=== PATIENT | female | born 1985 | race Caucasian/White ===

== ENCOUNTER 2020-05-15 09:00 | Outpatient (RCR) | payer OTHER, SELFPAY ==
--- NOTE | 2020-03-05 20:36 | P.CONTMS_ITS ---
History of Present Illness General Data Date of Service: 03/04/20 Reason for consult: TMS - second treatment course History of Present Illness 35 year old woman who has struggled with depression for over a decade. She has had periods of time in her life when her depression has been so severe that ths can not get out of bed, and she has been unable to work. She has had multiple medication trials but has not been able to tolerate side effects. She has also participated in therapy but has not achieved relief. Natalie had a full course of TMS from February to April 2019. She reports that it was the best thing I have ever done for myself . She stated that she felt well for the first time in her adult life and that her friends and family noticed a huge difference. The benefit was maintained for several months. She started to have difficulty about three or four months ago. Stressors include the pandemic which has been very difficult for her. She has a low mood, no energy, is sleeping more and she feels herself slipping into another episode of debilitating depression. During her last treatment her starting PHQ-9 was 17, final PHQ-9 7. She had no side effects and no negative consequences. The treatment was uneventful. ECT is not appropriate since she would not be able to support herself while having this treatment. Current medications None Therapist None Natalie feels strongly that she has not achieved relief with either of these. Past Psychiatric History/Medication Trials: Prozac Zoloft Lexapro Wellbutrin None of these were effective and they made her feel worse. She has no history of shamika, psychosis or SI. She has never been hospitalized. [facility] Narrative: No contraindications to TMS Family History: Multiple family members struggle with depression. Social History: Partnered. Works in a [place] [employer] Substance History: Denies Trauma History: Denies Meds/Allergies Allergies Allergies Allergy/AdvReac Type Severity Reaction Status Date / Time No Known Allergies Allergy Unverified 01/25/20 17:57 [No Known Allergies*] Mental Status Exam Mental Status Exam Patient Orientation: Person, Place, Time and Situation Level of Consciousness: Awake Patient Behavior: Cooperative Mood Description: Depressed, Anxious, Sad and Apprehensive Affect Description: Constricted Ability to Follow Directions: Good Speech Pattern: Clear and Spontaneous Speech Memory Description: Intact Hallucinations: None Delusions: Not Present Thought Process: Rumination, Goal Oriented and Slowed Thinking Thought Content: positive for Circumstantial, positive for Goal Oriented, positive for Preoccupation, negative for Suicidal Ideation and negative for Homicidal Ideation Depressive Symptoms: Difficulty Sleeping, Sleeping More Than Usual, Loss of Int. in Activity, Feelings of Worthlessness, Hopelessness, Isolating-Friends/Family, Feelings of Guilt, Unhappiness, Thoughts of /Suicide, Loss of Energy and Difficulty Concentrating Judgement: Good Assessment & Plan Assessment & Plan (1) Major depressive disorder, recurrent severe without psychotic features: Status: Acute Code(s): F33.2 - Major depressive disorder, recurrent severe without psychotic features Recommendations: Natalie has not responded to multiple medication trials, therapy and had a robust response to TMS. She has a recurrence of symptoms and another course of TMS is indicated. She will be referred to Selene Nguyen to coordinate her care. Greater than 50% of the session was spent on counseling and/or coordination of care
--- NOTE | 2020-03-21 11:26 | P.PNPS_ITS ---
TMS Daily Progress Note Daily TMS Progress Note Week #: 1 Treatment #(06-08): 1 PHQ-9 Pre-Treatment (06-05): 17 PHQ-9 Most Recent (06-05): 17 JAN-7 Pre-Treatment (0-21): 9 JAN-7 Most Recent (0-21): 9 CGI-I Most Recent: 0 = Not Assessed Reviewed: TMS Tech Note Reviewed (Uncomplicated mapping. Some changes to settings. Tolerated first treatment) Verification: I have reviewed the TMS Special Needs Caregiver Note and agree with the contents. The patient remains a candidate to continue TMS treatment per protocol.
--- NOTE | 2020-03-25 19:25 | HO.TMSDAILY2 ---
TMS Daily Progress Note Daily TMS Progress Note Week #: 1 Treatment #(06-08): 3 PHQ-9 Pre-Treatment (06-05): 17 PHQ-9 Most Recent (06-05): 17 JAN-7 Pre-Treatment (0-21): 9 JAN-7 Most Recent (0-21): 8 CGI-I Most Recent: 0 = Not Assessed Reviewed: TMS Tech Note Reviewed Verification: I have reviewed the TMS Physical Therapy Director Note and agree with the contents. The patient remains a candidate to continue TMS treatment per protocol.
--- NOTE | 2020-03-26 23:58 | P.PNPS_ITS ---
TMS Daily Progress Note Daily TMS Progress Note Week #: 1 Treatment #(06-08): 4 PHQ-9 Pre-Treatment (06-05): 17 PHQ-9 Most Recent (06-05): 17 JAN-7 Pre-Treatment (0-21): 9 JAN-7 Most Recent (0-21): 8 CGI-I Most Recent: 0 = Not Assessed Reviewed: TMS Tech Note Reviewed Verification: I have reviewed the TMS Swimming Pool Servicer Note and agree with the contents. The patient remains a candidate to continue TMS treatment per protocol.
--- NOTE | 2020-03-27 16:08 | P.PNPS_ITS ---
TMS Daily Progress Note Daily TMS Progress Note Week #: 1 Treatment #(06-08): 5 PHQ-9 Pre-Treatment (06-05): 17 PHQ-9 Most Recent (06-05): 17 JAN-7 Pre-Treatment (0-21): 9 JAN-7 Most Recent (0-21): 8 CGI-I Most Recent: 0 = Not Assessed Q-LES-Q-SF Most Recent: 57 Reviewed: TMS Tech Note Reviewed Verification: I have reviewed the TMS Supplemental Manager Note and agree with the contents. The patient remains a candidate to continue TMS treatment per protocol.
--- NOTE | 2020-03-28 04:19 | HO.TMSDAILY2 ---
TMS Daily Progress Note Daily TMS Progress Note Week #: 2 Treatment #(06-08): 6 PHQ-9 Pre-Treatment (06-05): 17 PHQ-9 Most Recent (06-05): 17 JAN-7 Pre-Treatment (0-21): 9 JAN-7 Most Recent (0-21): 8 CGI-I Most Recent: 0 = Not Assessed Q-LES-Q-SF Most Recent: 57 Reviewed: TMS Tech Note Reviewed Verification: I have reviewed the TMS Blood Splatter Analyst Note and agree with the contents. The patient remains a candidate to continue TMS treatment per protocol.
--- NOTE | 2020-03-29 13:54 | HO.TMSDAILY2 ---
TMS Daily Progress Note Daily TMS Progress Note Week #: 2 Treatment #(06-08): 7 PHQ-9 Pre-Treatment (06-05): 17 PHQ-9 Most Recent (06-05): 17 JAN-7 Pre-Treatment (0-21): 9 JAN-7 Most Recent (0-21): 8 CGI-I Most Recent: 0 = Not Assessed Q-LES-Q-SF Most Recent: 57 Reviewed: TMS Tech Note Reviewed Verification: I have reviewed the TMS Grade And Center Marker Note and agree with the contents. The patient remains a candidate to continue TMS treatment per protocol.
--- NOTE | 2020-04-02 23:12 | HO.TMSDAILY2 ---
TMS Daily Progress Note Daily TMS Progress Note Date of Service: 04/02/20 Week #: 1 Treatment #(06-08): 9 PHQ-9 Pre-Treatment (-): 17 PHQ-9 Most Recent (06-05): 9 JAN-7 Pre-Treatment (0-21): 9 JAN-7 Most Recent (0-21): 8 CGI-I Most Recent: 0 = Not Assessed Q-LES-Q-SF Most Recent: 57 Reviewed: TMS Tech Note Reviewed Verification: I have reviewed the TMS High School Social Science Teacher Note and agree with the contents. The patient remains a candidate to continue TMS treatment per protocol.
--- NOTE | 2020-04-03 05:44 | P.PNPS_ITS ---
TMS Daily Progress Note Daily TMS Progress Note Date of Service: 04/04/20 Week #: 2 Treatment #(-): 10 PHQ-9 Pre-Treatment (-): 17 PHQ-9 Most Recent (06-05): 13 JAN-7 Pre-Treatment (0-21): 9 JAN-7 Most Recent (0-21): 8 CGI-I Most Recent: 0 = Not Assessed Q-LES-Q-SF Most Recent: 57 Reviewed: TMS Tech Note Reviewed Verification: I have reviewed the TMS Chief Administrative Officer Note and agree with the contents. The patient remains a candidate to continue TMS treatment per protocol.
--- NOTE | 2020-04-08 17:36 | HO.TMSDAILY2 ---
TMS Daily Progress Note Daily TMS Progress Note Date of Service: 04/08/20 Week #: 3 Treatment #(06-08): 11 PHQ-9 Pre-Treatment (-): 17 PHQ-9 Most Recent (06-05): 13 JAN-7 Pre-Treatment (0-21): 9 JAN-7 Most Recent (0-21): 7 CGI-I Most Recent: 0 = Not Assessed Q-LES-Q-SF Most Recent: 57 Reviewed: TMS Tech Note Reviewed Verification: I have reviewed the TMS Drug Abuse Worker Note and agree with the contents. The patient remains a candidate to continue TMS treatment per protocol.
--- NOTE | 2020-04-09 23:16 | P.PNPS_ITS ---
TMS Daily Progress Note Daily TMS Progress Note Date of Service: 04/09/20 Week #: 3 Treatment #(-): 12 PHQ-9 Pre-Treatment (-): 17 PHQ-9 Most Recent (06-05): 9 JAN-7 Pre-Treatment (0-21): 9 JAN-7 Most Recent (0-21): 7 CGI-I Most Recent: 0 = Not Assessed Q-LES-Q-SF Most Recent: 57 Reviewed: TMS Tech Note Reviewed Verification: I have reviewed the TMS Windows Systems Architect Note and agree with the contents. The patient remains a candidate to continue TMS treatment per protocol.
--- NOTE | 2020-04-10 08:11 | P.PNPS_ITS ---
TMS Daily Progress Note Daily TMS Progress Note Date of Service: 04/10/20 Week #: 3 Treatment #(-30): 13 PHQ-9 Pre-Treatment (-): 17 PHQ-9 Most Recent (06-05): 13 JAN-7 Pre-Treatment (0-21): 9 JAN-7 Most Recent (0-21): 7 CGI-I Most Recent: 0 = Not Assessed Q-LES-Q-SF Most Recent: 57 Reviewed: TMS Tech Note Reviewed Verification: I have reviewed the TMS Contact Lens Molder Note and agree with the contents. The patient remains a candidate to continue TMS treatment per protocol.
--- NOTE | 2020-04-11 16:44 | HO.TMSDAILY2 ---
TMS Daily Progress Note Daily TMS Progress Note Date of Service: 04/11/20 Week #: 3 Treatment #(-): 14 PHQ-9 Pre-Treatment (-): 17 PHQ-9 Most Recent (06-05): 13 JAN-7 Pre-Treatment (0-21): 9 JAN-7 Most Recent (0-21): 7 CGI-I Most Recent: 0 = Not Assessed Q-LES-Q-SF Most Recent: 57 Reviewed: TMS Tech Note Reviewed Verification: I have reviewed the TMS Curatorial Assistant Note and agree with the contents. The patient remains a candidate to continue TMS treatment per protocol.
--- NOTE | 2020-04-12 12:52 | P.PNPS_ITS ---
TMS Daily Progress Note Daily TMS Progress Note Date of Service: 04/12/20 Week #: 3 Treatment #(-30): 15 PHQ-9 Pre-Treatment (-): 17 PHQ-9 Most Recent (06-05): 13 JAN-7 Pre-Treatment (0-21): 9 JAN-7 Most Recent (0-21): 7 CGI-I Most Recent: 0 = Not Assessed Q-LES-Q-SF Most Recent: 57 Reviewed: TMS Tech Note Reviewed Verification: I have reviewed the TMS Infectious Waste Technician Note and agree with the contents. The patient remains a candidate to continue TMS treatment per protocol.
--- NOTE | 2020-04-15 18:55 | P.PNPS_ITS ---
TMS Daily Progress Note Daily TMS Progress Note Date of Service: 04/15/20 Week #: 4 Treatment #(-30): 16 PHQ-9 Pre-Treatment (1-): 17 PHQ-9 Most Recent (06-05): 15 JAN-7 Pre-Treatment (0-21): 9 JAN-7 Most Recent (0-21): 5 CGI-I Most Recent: 0 = Not Assessed Q-LES-Q-SF Most Recent: 57 Reviewed: TMS Tech Note Reviewed Verification: I have reviewed the TMS Pump Erector Note and agree with the contents. The patient remains a candidate to continue TMS treatment per protocol.
--- NOTE | 2020-04-16 20:37 | P.PNPS_ITS ---
TMS Daily Progress Note Daily TMS Progress Note Date of Service: 04/16/20 Week #: 4 Treatment #(-30): 17 PHQ-9 Pre-Treatment (1-): 17 PHQ-9 Most Recent (06-05): 15 JAN-7 Pre-Treatment (0-21): 9 JAN-7 Most Recent (0-21): 5 CGI-I Most Recent: 0 = Not Assessed Q-LES-Q-SF Most Recent: 57 Reviewed: TMS Tech Note Reviewed Verification: I have reviewed the TMS Learning And Development Director Note and agree with the contents. The patient remains a candidate to continue TMS treatment per protocol.
--- NOTE | 2020-04-17 20:51 | HO.TMSDAILY2 ---
TMS Daily Progress Note Daily TMS Progress Note Date of Service: 04/17/20 Week #: 4 Treatment #(-30): 18 PHQ-9 Pre-Treatment (1-): 17 PHQ-9 Most Recent (06-05): 15 JAN-7 Pre-Treatment (0-21): 9 JAN-7 Most Recent (0-21): 5 CGI-I Most Recent: 0 = Not Assessed Q-LES-Q-SF Most Recent: 57 Reviewed: TMS Tech Note Reviewed Verification: I have reviewed the TMS Construction And Maintenance Inspector Note and agree with the contents. The patient remains a candidate to continue TMS treatment per protocol.
--- NOTE | 2020-04-19 10:31 | HO.TMSDAILY2 ---
TMS Daily Progress Note Daily TMS Progress Note Date of Service: 04/18/20 Week #: 4 Treatment #(-30): 19 PHQ-9 Pre-Treatment (1-): 17 PHQ-9 Most Recent (06-05): 15 JAN-7 Pre-Treatment (0-21): 9 JAN-7 Most Recent (0-21): 5 CGI-I Most Recent: 0 = Not Assessed Q-LES-Q-SF Most Recent: 57 Reviewed: TMS Tech Note Reviewed (Late entry for 04/18/20) Verification: I have reviewed the TMS Aeronautical Research Engineer Note and agree with the contents. The patient remains a candidate to continue TMS treatment per protocol.
--- NOTE | 2020-04-19 15:51 | HO.TMSDAILY2 ---
TMS Daily Progress Note Daily TMS Progress Note Date of Service: 04/19/20 Week #: 4 Treatment #(-30): 20 PHQ-9 Pre-Treatment (1-): 17 PHQ-9 Most Recent (-): 15 JAN-7 Pre-Treatment (0-21): 9 JAN-7 Most Recent (0-21): 5 CGI-I Most Recent: 0 = Not Assessed Q-LES-Q-SF Most Recent: 59 Reviewed: TMS Tech Note Reviewed Verification: I have reviewed the TMS Certified Master Safecracker Note and agree with the contents. The patient remains a candidate to continue TMS treatment per protocol.
--- NOTE | 2020-04-22 14:51 | P.PNPS_ITS ---
TMS Daily Progress Note Daily TMS Progress Note Date of Service: 04/22/20 Week #: 5 Treatment #(-30): 21 PHQ-9 Pre-Treatment (1-): 17 PHQ-9 Most Recent (06-05): 14 JAN-7 Pre-Treatment (0-21): 9 JAN-7 Most Recent (0-21): 8 CGI-I Most Recent: 0 = Not Assessed Q-LES-Q-SF Most Recent: 59 Reviewed: TMS Tech Note Reviewed Verification: I have reviewed the TMS Test Desk Supervisor Note and agree with the contents. The patient remains a candidate to continue TMS treatment per protocol.
--- NOTE | 2020-04-23 11:13 | HO.TMSDAILY2 ---
TMS Daily Progress Note Daily TMS Progress Note Date of Service: 04/23/20 Week #: 5 Treatment #(-30): 25 PHQ-9 Pre-Treatment (1-): 17 PHQ-9 Most Recent (-): 14 JAN-7 Pre-Treatment (0-21): 9 JAN-7 Most Recent (0-21): 8 CGI-I Most Recent: 0 = Not Assessed Q-LES-Q-SF Most Recent: 59 Reviewed: TMS Tech Note Reviewed Verification: I have reviewed the TMS Industrial Relations Commissioner Note and agree with the contents. The patient remains a candidate to continue TMS treatment per protocol.
--- NOTE | 2020-04-24 15:36 | HO.TMSDAILY2 ---
TMS Daily Progress Note Daily TMS Progress Note Date of Service: 04/24/20 Week #: 5 Treatment #(-30): 23 PHQ-9 Pre-Treatment (1-): 17 PHQ-9 Most Recent (-): 14 JAN-7 Pre-Treatment (0-21): 9 JAN-7 Most Recent (0-21): 8 CGI-I Most Recent: 0 = Not Assessed Q-LES-Q-SF Most Recent: 59 Reviewed: TMS Tech Note Reviewed Verification: I have reviewed the TMS Oracle Solutions Architect Note and agree with the contents. The patient remains a candidate to continue TMS treatment per protocol.
--- NOTE | 2020-04-25 13:43 | P.PNPS_ITS ---
TMS Daily Progress Note Daily TMS Progress Note Date of Service: 04/25/20 Week #: 5 Treatment #(-30): 24 PHQ-9 Pre-Treatment (1-): 17 PHQ-9 Most Recent (06-05): 14 JAN-7 Pre-Treatment (0-21): 9 JAN-7 Most Recent (0-21): 8 CGI-I Most Recent: 0 = Not Assessed Q-LES-Q-SF Most Recent: 59 Reviewed: TMS Tech Note Reviewed Verification: I have reviewed the TMS Community Association Manager Note and agree with the contents. The patient remains a candidate to continue TMS treatment per protocol.
--- NOTE | 2020-04-26 17:29 | P.PNPS_ITS ---
TMS Daily Progress Note Daily TMS Progress Note Date of Service: 04/26/20 Week #: 5 Treatment #(-30): 25 PHQ-9 Pre-Treatment (1-): 17 PHQ-9 Most Recent (-): 14 JAN-7 Pre-Treatment (0-21): 9 JAN-7 Most Recent (0-21): 8 CGI-I Most Recent: 0 = Not Assessed Q-LES-Q-SF Most Recent: 59 Reviewed: TMS Tech Note Reviewed Verification: I have reviewed the TMS House Coordinator Note and agree with the contents. The patient remains a candidate to continue TMS treatment per protocol.
--- NOTE | 2020-04-29 17:49 | HO.TMSDAILY2 ---
TMS Daily Progress Note Daily TMS Progress Note Date of Service: 04/30/20 Week #: 6 Treatment #(-30): 26 PHQ-9 Pre-Treatment (1-): 17 PHQ-9 Most Recent (06-05): 14 JAN-7 Pre-Treatment (0-21): 9 JAN-7 Most Recent (0-21): 8 CGI-I Most Recent: 0 = Not Assessed Q-LES-Q-SF Most Recent: 59 Reviewed: TMS Tech Note Reviewed Verification: I have reviewed the TMS Percussion Instrument Tuner Note and agree with the contents. The patient remains a candidate to continue TMS treatment per protocol.
--- NOTE | 2020-04-30 22:50 | P.PNPS_ITS ---
TMS Daily Progress Note Daily TMS Progress Note Date of Service: 04/30/20 Week #: 6 Treatment #(-30): 27 PHQ-9 Pre-Treatment (1-): 17 PHQ-9 Most Recent (06-05): 14 JAN-7 Pre-Treatment (0-21): 9 JAN-7 Most Recent (0-21): 8 CGI-I Most Recent: 0 = Not Assessed Q-LES-Q-SF Most Recent: 59 Reviewed: TMS Tech Note Reviewed Verification: I have reviewed the TMS Configuration Manager Note and agree with the contents. The patient remains a candidate to continue TMS treatment per protocol.
--- NOTE | 2020-05-02 17:02 | HO.TMSDAILY2 ---
TMS Daily Progress Note Daily TMS Progress Note Date of Service: 05/02/20 Week #: 6 Treatment #(-30): 29 PHQ-9 Pre-Treatment (1-): 17 PHQ-9 Most Recent (06-05): 14 JAN-7 Pre-Treatment (0-21): 9 JAN-7 Most Recent (0-21): 8 CGI-I Most Recent: 0 = Not Assessed Q-LES-Q-SF Most Recent: 59 Reviewed: TMS Tech Note Reviewed Verification: I have reviewed the TMS Oil Field Technician Note and agree with the contents. The patient remains a candidate to continue TMS treatment per protocol.
--- NOTE | 2020-05-06 23:51 | HO.TMSDAILY2 ---
TMS Daily Progress Note Daily TMS Progress Note Date of Service: 05/07/20 Week #: 6 Treatment #(-): 30 PHQ-9 Pre-Treatment (-): 17 PHQ-9 Most Recent (06-05): 14 JAN-7 Pre-Treatment (0-21): 9 JAN-7 Most Recent (0-21): 8 CGI-I Most Recent: 0 = Not Assessed Q-LES-Q-SF Most Recent: 59 Reviewed: TMS Tech Note Reviewed Verification: I have reviewed the TMS Support Merchandiser Note and agree with the contents. The patient remains a candidate to continue TMS treatment per protocol.
--- NOTE | 2020-05-07 23:06 | P.PNPS_ITS ---
TMS Daily Progress Note Daily TMS Progress Note Date of Service: 05/07/20 Week #: 7 Treatment #(-): 31 PHQ-9 Pre-Treatment (-): 17 PHQ-9 Most Recent (06-05): 14 JAN-7 Pre-Treatment (0-21): 9 JAN-7 Most Recent (0-21): 8 CGI-I Most Recent: 0 = Not Assessed Q-LES-Q-SF Most Recent: 59 Reviewed: TMS Tech Note Reviewed Verification: I have reviewed the TMS Health/Safety Job Titles Note and agree with the contents. The patient remains a candidate to continue TMS treatment per protocol.
--- NOTE | 2020-05-08 23:08 | P.PNPS_ITS ---
TMS Daily Progress Note Daily TMS Progress Note Date of Service: 05/08/20 Week #: 7 Treatment #(-): 32 PHQ-9 Pre-Treatment (-): 17 PHQ-9 Most Recent (06-05): 14 JAN-7 Pre-Treatment (0-21): 9 JAN-7 Most Recent (0-21): 8 CGI-I Most Recent: 0 = Not Assessed Q-LES-Q-SF Most Recent: 59 Reviewed: TMS Tech Note Reviewed Verification: I have reviewed the TMS Windshield Technician Note and agree with the contents. The patient remains a candidate to continue TMS treatment per protocol.
--- NOTE | 2020-05-09 23:48 | HO.TMSDAILY2 ---
TMS Daily Progress Note Daily TMS Progress Note Date of Service: 05/13/20 Week #: 7 Treatment #(06-08): 33 PHQ-9 Pre-Treatment (-): 17 PHQ-9 Most Recent (06-05): 14 JAN-7 Pre-Treatment (0-): 9 JAN-7 Most Recent (0-): 8 CGI-I Most Recent: 0 = Not Assessed Q-LES-Q-SF Most Recent: 59 Reviewed: TMS Tech Note Reviewed Verification: I have reviewed the TMS Product Safety Technical Assistant Note and agree with the contents. The patient remains a candidate to continue TMS treatment per protocol.
--- NOTE | 2020-05-13 23:48 | HO.TMSDAILY2 ---
TMS Daily Progress Note Daily TMS Progress Note Date of Service: 05/13/20 Week #: 7 Treatment #(06-08): 34 PHQ-9 Pre-Treatment (-): 17 PHQ-9 Most Recent (06-05): 14 JAN-7 Pre-Treatment (0-): 9 JAN-7 Most Recent (0-): 8 CGI-I Most Recent: 0 = Not Assessed Q-LES-Q-SF Most Recent: 59 Reviewed: TMS Tech Note Reviewed Verification: I have reviewed the TMS Yarn Polishing Machine Operator Note and agree with the contents. The patient remains a candidate to continue TMS treatment per protocol.
--- NOTE | 2020-05-14 22:58 | HO.TMSDAILY2 ---
TMS Daily Progress Note Daily TMS Progress Note Date of Service: 05/14/20 Week #: 7 Treatment #(06-08): 35 PHQ-9 Pre-Treatment (-): 17 PHQ-9 Most Recent (06-05): 14 JAN-7 Pre-Treatment (0-): 9 JAN-7 Most Recent (0-): 8 CGI-I Most Recent: 0 = Not Assessed Q-LES-Q-SF Most Recent: 59 Reviewed: TMS Tech Note Reviewed Verification: I have reviewed the TMS Tab Card Press Operator Note and agree with the contents. The patient remains a candidate to continue TMS treatment per protocol.
--- NOTE | 2020-05-15 23:23 | HO.TMSDAILY2 ---
TMS Daily Progress Note Daily TMS Progress Note Date of Service: 05/19/20 Week #: 8 Treatment #(-): 36 PHQ-9 Pre-Treatment (-): 17 PHQ-9 Most Recent (06-05): 14 JAN-7 Pre-Treatment (0-): 9 JAN-7 Most Recent (0-): 8 CGI-I Most Recent: 0 = Not Assessed Q-LES-Q-SF Most Recent: 59 Reviewed: TMS Tech Note Reviewed Verification: I have reviewed the TMS Home Service Technician Note and agree with the contents. The patient remains a candidate to continue TMS treatment per protocol.
== END 2020-05-15 10:01 | disposition home or self-care (01) ==
LOC: HO.PTMS 09:00
PROVIDERS: Visit Provider Psychiatry & Neurology Psychiatry
DX: F33.2 Major depressive disorder, recurrent severe without psychotic features (principal)
CPT/HCPCS: 90867; 90868

== ENCOUNTER 2025-02-20 08:58 | Emergency (ER) | payer OTHER, SELFPAY ==
--- OUTSIDE RECORDS SUMMARY | 2024-05-18 14:10 | XMS_ITS | Encounter Summary ---
Author Organization [facility] Address [address] [place] [address] [place] [address] Phone Care Team Providers Care Historic Site Administrator Name Role Phone Reddy De La Fuente CNP Primary Care Provider Sienna Gee MD Unavailable [phone] Encounter Details Date Type Department Care Team (Late st Contact Info) Description 05/18/2024 1:10 PM EST Hospital Encounter [facility] [address] [place] [address] Marita Cuevas FNP [address] [place] [id number] [email or web address] Social History Tobacco Use Types Packs/Day Years Used Date Smoking Tobacco: Never Smokeless Tobacco: Never Alcohol Use Standard Drinks/Week Comments Yes 0 (1 standard drink = 0.6 oz pur e alcohol) 1-4 drinks daily Child or Family Care Answer Date Record ed Do you have problems with on e of the following making it difficult for you to work, study, or receive health care? No 06/19/2024 Education Answer Date Recorded Are you interested in help w ith more adult education (for example, completing high school, GED, job training, learning the Syrian language, technical skills, or developing parenting skills)? No 06/19/2024 Are you concerned about learning? Not on file 06/19/2024 No 06/19/2024 Yes 06/19/2024 Food Answer Date Recorded Within the past 6 months we worried whether our food would run out before we got money to buy more. Sometimes True 025 Within the past 6 months the food we bought just didn't last and we didn't have enough money to get more. Never True 06/10 Residential Stability Answer Date Recor ded What is your housing situation today? I have sofie evans 06/19/2024 How many times have you move d in the past 12 months? Zero (I did not move) 06/19/2024 Paying for Meds Answer Date Recorded Do you have trouble paying for medicines? I delvis se not to answer 06/19/2024 Paying Utility Bills Answer Date Record ed Do you have trouble paying y our heating or electricity bill? I choose not to answer 06/19/2024 Transportation Answer Date Recorded Has the lack of transportati on kept you from medical appointments or from getting medications? No 06/19/2024 Unemployment Answer Date Recorded Are you currently unemployed or working on a part-time or temporary basis, and looking for work? No 06/19/2024 Digital Access Answer Date Recorded No 06/19/2024 Yes 06/19/2024 Do you have reliable internet access at home? Ye s 06/19/2024 Do you have a device (e.g., phone, tablet, computer) with a working camera? Yes 06/19/2024 Intimate Partner Violence Answer Date R ecorded Denied Basic Needs Not on file 06/19/2024 In the past 12 months have y ou been in a relationship with a person who hurts, threatens, or tries to control you? No 06/19/2024 Worried food would run out Not on file 06/19 In the past 12 months have y ou been in a relationship with a person who hurts, threatens, or tries to control you? 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 on file Not on file Not on file documented as of this encounter Plan of Treatment Upcoming Encounters Date Type Department Care Team (Late st Contact Info) Description 06/26/2025 10:00 AM EST Office Visit [facility] [address] [place] [address] Reddy De La Fuente, BIN PILER [address], [address] [place] [address] documented as of this encounter Procedures Procedure Name Priority Date/Time Associated Diagnosis Comments XR FINGER 2 OR MORE VIEWS (RIGHT) Urgent/patient waiting 05/18/2024 1:18 PM EST Fall, initial encounter documented in this encounter Results * XR FINGER 2 OR MORE VIEWS (RIGHT) (05/18/2024 1:18 PM EST) Anatomical Region Laterality Modality Hand Right Computed Radiogr aphy 05/18/2024 2:02 PM EST Impressions 05/18/2024 2:03 PM EST No fracture or dislocation. Narrative 05/18/2024 2:03 PM EST XR FINGER 2 OR MORE VIEWS (RIGHT) Referring clinician's provided indication for this examination in [facility]: S/P Fall; fell ice skating with hands behind her COMPARISON: None FINDINGS: No fracture. Normal alignment. Normal joint spaces. Procedure Note Yenny Eden MD, CEDRICK - 05/18/2024 XR FINGER 2 OR MORE VIEWS (RIGHT) Referring clinician's provided indication for this examination in [facility]:S/P Fall; fell ice skating with hands behind her COMPARISON: None FINDINGS: No fracture. Normal alignment. Normal joint spaces. IMPRESSION: No fracture or dislocation. us Marita Cuevas COMMUNICATIONS INTERN IMG XR UPPER EXTREMITY Caterina l Result documented in this encounter Visit Diagnoses Not on filedocumented in this encounter Additional Health Concerns Assessment Noted Time PHQ-9 Depression Total Score: 11 03/03/ 021 5:29 PM EDT PHQ-2 Depression Total Score: 2 03/09/20 22 10:42 AM EDT documented as of this encounter Care Teams Historic Site Administrator Relationship Specialty Start Date End Date Reddy De La Fuente CNP [address] [place] [address], [address] [place] [address] [email or web address] PCP - General Family Medicine 12/01/17 Sienna Gee MD [address] [place] [address], [address] [place] [address] [email or web address] Insurance Assigned Provider Family Medicine 12/01/17 documented as of this encounter Additional Source Comments The information contained in this document represents components of the legal health record. It is not the complete legal health record.[facility]
--- OUTSIDE RECORDS SUMMARY | 2024-06-28 10:00 | XMS_ITS | Encounter Summary ---
Author Organization [facility] Address [address] [facility] [address] [place] [address] Phone Care Team Providers Care Electricity Trader Name Role Phone Reddy De La Fuente CNP Primary Care Provider Sienna Gee MD Unavailable [phone] Encounter Details Date Type Department Care Team (Late st Contact Info) Description 06/28/2024 9:00 AM EST Hospital Encounter [facility] [address] [place] [address] Jessica Mcfadden, SIDNEY [address] [place] [address] [email or web address] Social History Tobacco Use Types Packs/Day Years [...] high school, GED, job training, learning the Trinidadian language, technical skills, or developing parenting skills)? 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 Not on file Not on file documented as of this encounter Plan of Treatment Upcoming Encounters Date Type Department Care Team (Late st Contact Info) Description 06/26/2025 10:00 AM EST Office Visit [facility] [address] [place] [address] Reddy De La Fuente, MEAT PASSER [address] [facility], [address] [place] [address] [email or web address] documented as of this encounter Procedures Procedure Name Priority Date/Time Associated Diagnosis Comments XR HAND 3 OR MORE VIEWS (LEFT) Urgent/patient waiting 06/28/2024 9:05 AM EST Dog bite, subsequent encounter documented in this encounter Results * XR HAND 3 OR MORE VIEWS (LEFT) (06/28/2024 9:05 AM EST) Anatomical Region Laterality Modality Hand Left Computed Radiogr aphy 06/28/2024 10:1 7 AM EST Impressions 06/28/2024 10:19 AM EST FINDINGS/IMPRESSION: No fracture. Normal alignment. Normal joint spaces. No bony erosions. Soft tissue swelling overlying the second PIP joint. No soft tissue gas. No radiopaque foreign body. Narrative 06/28/2024 10:19 AM EST XR HAND 3 OR MORE VIEWS (LEFT) Referring clinician's provided indication for this examination in [facility]: Infection COMPARISON: None. Procedure Note Claude Severino MD - 06/28/2024 XR HAND 3 OR MORE VIEWS (LEFT) Referring clinician's provided indication for this examination in [facility]:Infection COMPARISON: None. IMPRESSION: FINDINGS/IMPRESSION: No fracture. Normal alignment. Normal joint spaces. No bony erosions. Softtissue swelling overlying the second PIP joint. No soft tissue gas. Noradiopaque foreign body. us Jessica Mcfadden CREATIVE ART THERAPIST IMG XR UPPER EXTREMITY Fin al Result documented in this encounter Visit Diagnoses Not on filedocumented in this encounter Additional Health Concerns Assessment Noted Time PHQ-9 Depression Total Score: 11 021 5:29 PM EDT PHQ-2 Depression Total Score: 2 06/19/19 25 4:03 PM EST documented as of this encounter Care Teams Electricity Trader Relationship Specialty Start Date End Date De La Fuente Reddypatrick Pruitt CNP [address] [place] [address], [address] [place] [address] PCP - General Family Medicine 12/01/17 Sienna Gee MD [address] [place] [address], [address] [place] [address] [email or web address] Insurance Assigned Provider Family Medicine 12/01/17 documented as of this encounter Additional Source Comments The information contained in this document represents components of the legal health record. It is not the complete legal health record.[facility]
--- NOTE | ~2025-02-20 | CT_ITS ---
EXAMINATION: CT HEAD AND FACIAL BONES WITHOUT CONTRAST CLINICAL INFORMATION: Left-sided facial pain after fall. COMPARISON: None TECHNIQUE: Contiguous axial imaging was performed from the skull base to vertex, as well as the maxillofacial bones/mandible without intravenous administration of contrast. Multiplanar reformatted imaging was constructed from the axial data set. This CT examination was performed using dose optimization techniques as appropriate, variously including the following: *Automated exposure control *Adjustment of mA and/or kV according to patient size (this includes techniques or standardized protocols for targeted exams where dose is matched to indication/reason for exam; i.e. extremities or head) *Use of iterative reconstruction technique CT HEAD: There is no evidence of intracranial hemorrhage or extra-axial fluid collection. There is no mass effect, or edema. No CT evidence of acute territorial infarct. Ventricles, sulci, and cisterns are normal in size and configuration for patient age. No hydrocephalus. No midline shift. Negative hyperdense MCA sign. Negative insular ribbon sign. No significant white matter abnormalities. Normal pituitary. Globes and orbital contents image normally. The calvarium and skull base are intact without fracture. CT MAXILLOFACIAL BONES: The mandible is intact without fracture. The TM joints are normally oriented. The nasal bones, nasal process, maxilla, orbits, zygomatic arches, pterygoid plates, and sphenoid bone are intact without fracture. No significant nasal septal deviation. Paranasal sinuses are normally pneumatized throughout. No paranasal sinus fractures. The mastoids and tympanic cavities are normally aerated. Soft tissues demonstrate mild soft tissue swelling overlying the left orbit and left frontal scalp region. CT/CT facial bones wo IV con IMPRESSION: 1. No acute intracranial abnormalities. No calvarial or skull base fracture. 2. No maxillofacial bone fracture identified. 3. Mild soft tissue swelling involving the left frontal scalp and left preseptal orbit. Electronically signed by: Lamine Cast MD 02/20/2025 11:14 AM EDT
[2025-02-20 09:07] VITALS: BP 156/89; PULSE 100; RESP 18; TEMP 36.6; O2SAT 100; BMI 25.5
--- NOTE | 2025-02-20 09:52 | ED.HEATRA ---
HPI - Head Injury General Chief complaint: Head Injury Stated complaint: Head injury Time Seen by Provider: 02/20/25 09:22 Source: patient and RN notes reviewed Mode of arrival: ambulatory Limitations: no limitations History of Present Illness ED Provider: Jessica Barajas PA-C HPI Narrative: This is a 40-year-old female who presents emergency department with concerns of head strike which occurred 2 days ago. Patient states that she accidentally tripped over a dog bone, and struck the left side of her forehead on a window sill. No LOC. She states that since this injury she has had ongoing headaches, fatigue, and nausea. She states that she did have 1 episode of vomiting after the incident however states that this has since resolved. She is not on anticoagulation. No other complaints or concerns at this time. MD Complaint: head injury Associated symptoms: denies other symptoms Related Data Allergies Allergy/AdvReac Type Severity Reaction Status Date / Time shellfish derived (shellfish) Allergy Itching Verified 02/20/25 09:11 Review of Systems Review of Systems: Constitutional : No Fever, No Chills ENT/Mouth : No sore throat, No Rhinorrhea Eyes: No Eye Pain, No Swelling, No Redness Cardiovascular : No Chest Pain, No SOB Respiratory : No Cough, No Sputum Gastrointestinal : +Nausea, + Vomiting (resolved), No Diarrhea, No abdominal Pain Genitourinary : No Dysuria, No Hematuria Musculoskeletal : No joint pain, No Myalgias, No Joint Swelling Skin : No Skin Lesions Neuro : No Weakness, No Numbness, +Headache All other systems reviewed and are negative Yes all other systems are reviewed and are negative Constitutional: Constitutional: Reports as per [facility] Social History Social History Advance Directives: No Advance Directives Information Provided: No Do you have a plan to hurt others: No Plan Physical Exam Vital Signs: Vital Signs: Last Vital Signs Temp 98 F 02/20/25 09:07 Pulse 100 02/20/25 09:07 Resp 18 02/20/25 09:07 BP 156/89 H 02/20/25 09:07 Pulse Ox 100 02/20/25 09:07 O2 Del Method Room Air 02/20/25 09:07 BMI result Body Mass Index 25.5 Const: General: cooperative, comfortable and no acute distress Orientation/consciousness: patient oriented x3 Limitations: no limitations HEENT: Head: Yes normal to inspection, Yes normocephalic and Yes atraumatic Ears: hearing grossly normal bilaterally General nose exam: Normal external nose present Face and sinus: Yes normal facial exam Mouth: Normal oral and palatal mucosa present, oropharynx normal and moist mucous membranes Throat: Yes posterior oropharynx normal Eyes: Other: Left infra orbital ecchymosis seen, no tenderness palpation along the orbital bones. General: appearance normal, both eyes and all related structures Eyelids: Yes eyelids normal Conjunctivae: conjunctivae normal Sclerae: sclerae normal Pupils: Equal, round and reactive pupils present EOM: EOMs intact bilaterally Neck: Other: No midline spine tenderness on examination. Neck: Yes normal visual inspection, Yes full ROM and Yes no lymphadenopathy Lymphatic: no lymphadenopathy noted Chest: Chest palpation & inspection: normal inspection of the chest Resp: Effort & Inspection: normal respiratory effort and able to speak in complete sentences Auscultation: clear to auscultation bilaterally, no crackles, no rales, no rhonchi and no wheezes Cardio: Rate: regular rate Rhythm: regular rhythm Heart sounds: S1 normal heart sound present and S2 normal heart sound present GI: Inspection: Yes normal to inspection Skin: General skin exam: no rashes or lesions noted Trauma: no lacerations or abrasions Wounds: no wounds Neuro: General: patient oriented x3 and moves all extremities Cranial nerves: Yes CN's II-XII intact bilaterally and Yes Equal, round and reactive pupils present Cognition (Neuro): normal cognition Gait exam (Neuro): Normal gait present Motor exam (neuro): 5/5 motor strength present throughout and Pronator motor function not present Pupils: Normal pupillary reactivity/response: bilateral Extrem: General: Yes normal to inspection Right upper extremity: normal to inspection Left upper extremity: normal to inspection Right lower extremity: normal to inspection Left lower extremity: normal to inspection Medical Decision Making Medical Decision Making MDM Narrative: This is a 40-year-old female who presents emergency department with concerns of head injury which occurred 2 nights ago. Patient had a trip and fall with positive head strike on window sill 2 days ago. No LOC. She is not on anticoagulation. On arrival, patient mildly hypertensive at 156/89, all other vital signs within normal limits. She is neurologically intact. Differential diagnoses include ICH-unlikely, closed head injury, facial bone fracture, concussion. 11:28 AM 02/20/2025 (Jessica Barajas PA-C): CT head and facial bones revealing no acute findings. Soft tissue swelling noted overlying the left orbital region without any fractures. Discussed findings with patient. Given strict return precautions, she will follow-up with her primary care physician. Patient stable for discharge. Differential Diagnosis Differential Diagnoses: The differential diagnosis associated with the presentation includes See above Radiology Impression Discussion of test interpretation with radiology: I have reviewed the radiologist's reading. Radiologist Impression: CT MAXILLOFACIAL BONES: The mandible is intact without fracture. The TM joints are normally oriented. The nasal bones, nasal process, maxilla, orbits, zygomatic arches, pterygoid plates, and sphenoid bone are intact without fracture. No significant nasal septal deviation. Paranasal sinuses are normally pneumatized throughout. No paranasal sinus fractures. The mastoids and tympanic cavities are normally aerated. Soft tissues demonstrate mild soft tissue swelling overlying the left orbit and left frontal scalp region. CT/CT head/brain wo IV con IMPRESSION: 1. No acute intracranial abnormalities. No calvarial or skull base fracture. 2. No maxillofacial bone fracture identified. 3. Mild soft tissue swelling involving the left frontal scalp and left preseptal orbit. Electronically signed by: Lamine Cast MD 02/20/2025 11:14 AM EDT Dictated By: Lamine Cast MD [place] [address] CT Scan Report Signed Patient: Natalie Catalan MR#: [id number] : 1985 Acct:[id number] Age/Sex: 40 / F ADM Date: 02/20/25 Loc: HO.ED Attending Dr: Ordering Physician: Jessica Barajas Date of Service: 02/20/25 Procedure(s): CT facial bones wo IV con Accession Number(s): [id number] cc: Reddy De La Fuente BIOLOGY DEPARTMENT CHAIR; Jessica Barajas~ Report Number: [id number]: Total DLP = 997.00 mGy-cm Reason for Exam: left sided facial pain s/p fall EXAMINATION: CT HEAD AND FACIAL BONES WITHOUT CONTRAST CLINICAL INFORMATION: Left-sided facial pain after fall. COMPARISON: None TECHNIQUE: Contiguous axial imaging was performed from the skull base to vertex, as well as the maxillofacial bones/mandible without intravenous administration of contrast. Multiplanar reformatted imaging was constructed from the axial data set. This CT examination was performed using dose optimization techniques as appropriate, variously including the following: *Automated exposure control *Adjustment of mA and/or kV according to patient size (this includes techniques or standardized protocols for targeted exams where dose is matched to indication/reason for exam; i.e. extremities or head) *Use of iterative reconstruction technique CT HEAD: There is no evidence of intracranial hemorrhage or extra-axial fluid collection. There is no mass effect, or edema. No CT evidence of acute territorial infarct. Ventricles, sulci, and cisterns are normal in size and configuration for patient age. No hydrocephalus. No midline shift. Negative hyperdense MCA sign. Negative insular ribbon sign. No significant white matter abnormalities. Normal pituitary. Globes and orbital contents image normally. The calvarium and skull base are intact without fracture. CT MAXILLOFACIAL BONES: The mandible is intact without fracture. The TM joints are normally oriented. The nasal bones, nasal process, maxilla, orbits, zygomatic arches, pterygoid plates, and sphenoid bone are intact without fracture. No significant nasal septal deviation. Paranasal sinuses are normally pneumatized throughout. No paranasal sinus fractures. The mastoids and tympanic cavities are normally aerated. Soft tissues demonstrate mild soft tissue swelling overlying the left orbit and left frontal scalp region. CT/CT facial bones wo IV con IMPRESSION: 1. No acute intracranial abnormalities. No calvarial or skull base fracture. 2. No maxillofacial bone fracture identified. 3. Mild soft tissue swelling involving the left frontal scalp and left preseptal orbit. Electronically signed by: Lamine Cast MD 02/20/2025 11:14 AM EDT Dictated By: Lamine Cast MD Discharge Plan Discharge Clinical Impression: Closed head injury, Concussion without loss of consciousness Patient Disposition: Home, Self-Care Instructions: Concussion (ED), Head Injury (ED) Additional Instructions: You were seen in the emergency department after hitting the left side of your head 2 days ago. We will obtain CT scans of your head and facial bones which revealed no acute injury. There is some mild soft tissue swelling involving the left frontal scalp and left eye region however this should improve after several days. Physical and mental rest will help improve your symptoms quicker. Avoid prolonged screen times. You may alternate between ibuprofen and or Tylenol as needed for pain and symptoms. Apply ice to the region for pain relief. If any new or worsening symptoms occur including but not limited to worsening pain, severe headache, dizziness, blurred vision, please seek emergent care. Stand Alone Forms: Work/School Release Print Language: Romansh
--- OUTSIDE RECORDS SUMMARY | 2025-02-20 10:30 | XMS_ITS | Encounter Summary ---
Author Organization [facility] Address [address] [place] [address] [address] [place] [address] Phone Care Team Providers Care Grant Coordinator Name Role Phone Reddy De La Fuente CNP Primary Care Provider Sienna Gee MD Unavailable [phone] Encounter Details Date Type Department Care Team (Late st Contact Info) Description 07/11/2024 Telephone [facility] [address] [place], [place] [id number] Reddy De La Fuente, ROBERTA [address] [facility], [address] [place] [address] [email or web address] Social History Tobacco Use Types Packs/Day Years [...] high school, GED, job training, learning the Ethiopian language, technical skills, or developing parenting skills)? 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 on file Not on file documented as of this encounter Plan of Treatment Upcoming Encounters Date Type Department Care Team (Late st Contact Info) Description 06/26/2025 10:00 AM EST Office Visit [facility] [address] [place] [address] Reddy De La Fuente CNP [address] [place] [address], [address] [place] [address] [email or web address] documented as of this encounter Visit Diagnoses Not on filedocumented in this encounter Additional Health Concerns Assessment Noted Time PHQ-9 Depression Total Score: 11 021 5:29 PM EDT PHQ-2 Depression Total Score: 2 06/19/19 25 4:03 PM EST documented as of this encounter Care Teams Grant Coordinator Relationship Specialty Start Date End Date Reddy De La Fuente CNP [address] [place] [address], [address] [place] [address] PCP - General Family Medicine 12/01/17 Sienna Gee MD [address] [place] [address], [address] [place] [address] [email or web address] Insurance Assigned Provider Family Medicine 12/01/17 documented as of this encounter Additional Source Comments The information contained in this document represents components of the legal health record. It is not the complete legal health record.[facility]
--- OUTSIDE RECORDS SUMMARY | 2025-02-20 10:30 | XMS_ITS | Clinical Summary ---
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 1 Device 2 8 Active therapeutic multivitamin tablet Take 1 tablet by mouth daily. Active ketamine HCl (KETAMINE SL) Place 240 mg under the tongue 2 (two) times a week. Active venlafaxine (EFFEXOR-XR) 75 MG 24 hr capsule Take 1 capsule (75 mg total) by mouth daily. 5 Active Additional Information Patient not taking.Reported on 07/27/2024 venlafaxine (EFFEXOR-XR) 150 MG 24 hr capsuleIndicatio ns:Seasonal affective disorder,Major depression, recurrent, chronic Take 2 capsules (300 mg total) by mouth daily. Take 2 (150mg) tabs nightly 180 capsule 3 5 Active Active Problems Problem Noted Date Diagnosed Date Alcohol abuse 06/20/2024 Allergic reaction to shellfish 07/25/2017 Seasonal affective disorder 07/25/2017 Recurrent major depressive disorder, in partial remission 07/25/2017 Moderate recurrent major depression 07/25/2017 Immunizations Immunization Administration Dates Next Due COVID-19 (Pre-03/01) Cnorad Vaccine, [id number], PF 08/12/2020 COVID-19 (Pre-03/01) Moderna Vaccine Adult Booster/6-11yrs Primary 09/20/2021 DTP 12/28/1991, 9,1987,05/08,1987 HPV,quadrivalent 03/04/2009,10/29/2008, 8 HPV9 11/06/2014,07/03/2014,05/01/2014 Hepatitis B 04/24/1998,11/23/1997,10/29/1997 Hib, unspecified formulation 02/23/2013,04/27/20 03 IPV 09/08/2013,04/27/2003,02/23/2003 Influenza quadrivalent nasal 02/24/2016 MMR 12/24/1998,04/20/1988 MMRV 09/08/2013,03/20/2004 Meningococcal MCV4P 04/22/2015 Polio - OPV 12/28/1991, 9,1987,03/08 Polio, Unspecified Formulation 03/20/2004,2003 Td (adult) 5 Lf Tetanus Toxo id, PF, Adsorbed 06/20/2024 Td (adult),2 Lf Tetanus Toxo id, PF, Adsorbed 08/02/2018 Tdap 09/08/2013,10/29/2008 Varicella 02/06/2011,12/27/2003 Family History Medical History Relation Comments Alcohol abuse Father Osteoarthritis Father Alcohol abuse Mother Asthma Mother Heart attack Paternal Grandfather Stroke Paternal Grandmother Diabetes Sister Relation Status Comments Brother Father Alive Mother Alive Nephew Alive Paternal Grandfather Paternal Grandmother Sister Alive Social History Tobacco Use Types Packs/Day Years Used Date Smoking Tobacco: Never Smokeless Tobacco: Never Tobacco Cessation:Counseling Given: Not Answered Alcohol Use Standard Drinks/Week Comments Yes 0 [...] high school, GED, job training, learning the [place] language, technical skills, or developing parenting skills)? [...] your housing situation today? I have sofie sing 06/19/2024 How many times have you move [...] Industry Job Start Date Job End Date [employer] Not on file Not on file Not on file Last Filed Vital Signs Vital Sign Reading Time Taken Comments Blood Pressure 110/78 07/27/2024 1:49 PM EDT Pulse 98 07/27/2024 1:49 PM EDT Temperature 35.9 C (96.6 F) 07/27/2024 1:49 PM EDT Respiratory Rate 16 06/28/2024 8:43 AM EST Oxygen Saturation 99% 07/27/2024 1:49 PM EDT Inhaled Oxygen Concentration - - Weight 64.5 kg (142 lb 3.2 oz) 07/27/2024 1:49 P M EDT Height 155.2 cm (5' 1.1 ) 07/27/2024 1:49 PM EDT Body Mass Index 26.78 07/27/2024 1:49 PM EDT Plan of Treatment Upcoming Encounters Date Type Department Care Team (Late st Contact Info) Description 06/26/2025 10:00 AM EST Office Visit [facility] [address] [place] [address] Reddy De La Fuente, ENTRY LEVEL SALES ASSOCIATE [address] [facility] [place] [address] Health Maintenance Due Date Last Done Comments INFLUENZA VACCINE (#1) 2024 02/24/2016 COVID-19 VACCINE ( season) 2025 09/20/2021, 09/20/2021, 08/12/2020 DEPRESSION SCREENING 06/19/2025 06/19/2024, 03/03/20 21 SCREENING FOR DIABETES 06/20/2027 06/20/2024 PAP SMEAR 06/20/2029 06/20/2024, 07/09, 08/02/2018, Additional history exists Adult Td,Tdap Booster 06/20/2034 06/20/2024 , 08/02/2018, 09/08/2013, Additional history exists HIB VACCINES Aged Out 02/23/2013, 04/27/2003 No lo nger eligible based on patient's age to complete this topic MENINGOCOCCAL VACCINES (ACWY) Aged Out 04/22/2015 No longer eligible based on patient's age to complete this topic HEPATITIS C SCREENING Completed 01/16/2021 HIV ONE-TIME SCREENING (18-65 YEARS) Completed 01/16/2021 SMOKING STATUS SCREENING (Once After 26 Yrs) Completed 07/27/2024 HEPATITIS A VACCINES Aged Out No long er eligible based on patient's age to complete this topic MENINGOCOCCAL VACCINES (B) Aged Out N o longer eligible based on patient's age to complete this topic PNEUMOCOCCAL VACCINES (0-49 years) Aged Out No longer eligible based on patient's age to complete this topic Medical Devices Not on file Procedures Procedure Name Priority Date/Time Associated Diagnosis Comments PAP TEST Routine 06/20/2024 12:00 AM EST HEPATITIS C ANTIBODY, QUALITATIVE Routine 01/16/2021 4:05 PM EDT Encounter for HCV screening test for low risk patient from Last 3 Months or Most Recently Relevant to Health Maintenance Results * Pap Test (06/20/2024 12:00 AM EST) Report [address] [address] Watermelon Inspector: James Lieberman MD FOOT TENDER Cytology Report FINAL DIAGNOSIS A. PAP SMEAR (THIN PREP) CE: SPECIMEN ADEQUACY: Satisfactory for evaluation; transformation zone absent/insufficien t. INTERPRETATION: NEGATIVE FOR INTRAEPITHELIAL LESION OR MALIGNANCY. This specimen was analyzed by the automated ThinPrep Imaging System ([employer] and the selected nichols were reviewed by a utility bill complaints investigator. Electronically Signed Out By: SONNY Perales(ASCP) The Pap test is a screening test primarily for squamous cancers and precursors and has associated false-negative and false-positive results. New technologies such as liquid-based preparations may decrease but will not eliminate all false-negative results. Regular sampling and follow-up of unexplained clinical signs and symptoms are recommended to minimize false negative results. PROCEDURES/ADDENDA HPV Testing (Requested) Ordered Date: 06/21/2024 A. PAP SMEAR (THIN PREP) CE: High-risk HPV Panel w/ extended genotyping NEG HPV 16-NEG HPV 18-NEG HPV 45-NEG HPV 33/58-NEG HPV 31-NEG HPV 56/59/66-NEG HPV 51-NEG HPV 52-NEG HPV 35/39/68-NEG Performed by real-time polymerase chain reaction (PCR) at [address] using the FDA-approved BD Onclarity9 HPV Assay with extended genotyping. Uses of the assay in scenarios other than those approved by the FDA should be considered off-label use. The accuracy and precision of this test for all other off-label specimen sources has been verified in the Cytopathology Laboratory of the [facility] and has not been cleared or approved by the U.S. Food and Drug Administration. Clinical correlation is advised. The assay assesses the E6/E7 DNA target and utilizes human beta globin as an internal control. Cytology and HPV testing are screening assays and should not be used as the sole means of detecting cancer. False-positives and false-negatives can occur. CLINICAL HISTORY Date of Last Menstrual Period: Not Provided Menstrual History: Unknown: SPOTTING Contraceptive History: IUD Other Clinical Conditions: Screening Pap SPECIMEN SOURCE A: PAP SMEAR (THIN PREP) CE Patient Name: DAVID CATALAN : 1985 (Age: 39) Sex: F Institution: [facility] Location: [facility] Date of Collection: 06/20/2024 Date of Reported: 06/23/2024 11:22 Results to: Reddy De La Fuente NP [facility] Final Diagnosis A. PAP SMEAR (THIN PREP) CE: SPECIMEN ADEQUACY: Satisfactory for evaluation; transformation zone absent/insufficien t. INTERPRETATION: NEGATIVE FOR INTRAEPITHELIAL LESION OR MALIGNANCY. This specimen was analyzed by the automated ThinPrep Imaging System ([employer] and the selected nichols were reviewed by a utility bill complaints investigator. [facility] Results\Inter pretation A. PAP SMEAR (THIN PREP) CE: High-risk HPV Panel w/ extended genotyping NEG HPV 16-NEG HPV 18-NEG HPV 45-NEG HPV 33/58-NEG HPV 31-NEG HPV 56/59/66-NEG HPV 51-NEG HPV 52-NEG HPV 35/39/68-NEG Performed by real-time polymerase chain reaction (PCR) at [facility], [address] [place] [address] using the FDA-approved BD Onclarity HPV Assay with extended genotyping. Uses of the assay in scenarios other than those approved by the FDA should be considered off-label use. The accuracy and precision of this test for all other off-label specimen sources has been verified in the Cytopathology Laboratory of the [facility] and has not been cleared or approved by the U.S. Food and Drug Administration. Clinical correlation is advised. The assay assesses the E6/E7 DNA target and utilizes human beta globin as an internal control. Cytology and HPV testing are screening assays and should not be used as the sole means of detecting cancer. False-positives and false-negatives can occur. [facility] Conversion Type 06/20/2024 9:23 AM EST Reddy De La Fuente ENTRY LEVEL SALES ASSOCIATE CYTOLOGY ORDERABLES Ed ited Result - Final Performing Organization Address City/[facility]/ZIP Co de Phone Number [address] [address] * Hepatitis C antibody, qualitative (01/16/2021 4:05 PM EDT) HCV NON-REACTIV E NON-REACTI VE [facility] Blood 01/16/2021 4:05 PM EDT 01/16/2021 4:13 PM EDT Reddy De La Fuente ENTRY LEVEL SALES ASSOCIATE LAB BLOOD ORDERABLES F inal Result Performing Organization Address City/[facility]/ZIP Co de Phone Number [address] [address] from Last 3 Months or Most Recently Relevant to Health Maintenance Insurance HEALTH SAF[employer]Y NET PARTIAL HE[employer] SAF[employer]Y NET PARTIAL HEALTH SAF[employer]Y NET PARTIAL HEALTH SAFETY NET PARTIAL HEALTH SAFETY NET PARTIAL HE[employer] SAF[employer]Y NET PARTIAL HEALTH SAF[employer]Y NET PARTIAL HEALTH SAF[employer]Y NET PARTIAL NET PARTIAL Care Teams Groundskeeping Maintenance Worker Relationship Specialty Start Date End Date Reddy De La Fuente CNP [address] [facility] [place] [address] [email or web address] PCP - General Family Medicine 12/01/17 Sienna Gee MD [address] [facility] [place] [address] [email or web address] Insurance Assigned Provider Family Medicine 12/01/17 Additional Source Comments The information contained in this document represents components of the legal health record. It is not the complete legal health record.[facility]
[2025-02-20 11:42] VITALS: BP 150/84; PULSE 74; RESP 16; TEMP 36.8; O2SAT 98
== END 2025-02-20 11:43 | disposition home or self-care (01) ==
PROVIDERS: Emergency Provider Emergency Medicine; PCP Nurse Practitioner Primary Care
DX: S09.90XA Unspecified injury of head, initial encounter (principal); S00.93XA Contusion of unspecified part of head, initial encounter; W18.09XA Striking against other object with subsequent fall, initial encounter; Y93.9 Activity, unspecified; Y92.9 Unspecified place or not applicable; R51.9 Headache, unspecified
CPT/HCPCS: 70450; 70486; 99282; 99284

== ENCOUNTER → 2025-02-20 09:52 | Outpatient (BNV) | payer OTHER, SELFPAY | PROVIDERS: Emergency Provider Emergency Medicine; PCP Nurse Practitioner Primary Care; Visit Provider Radiology Diagnostic Radiology | DX: R22.0 Localized swelling, mass and lump, head (principal); S09.90XA Unspecified injury of head, initial encounter; W01.10XA Fall on same level from slipping, tripping and stumbling with subsequent striking against unspecified object, initial encounter | CPT/HCPCS: 70450; 70486 ==